=== PATIENT | female | born 2000 | race African-American/Black ===

== ENCOUNTER 2025-02-04 13:17 | Emergency (ER) | payer MEDICAID, OTHER ==
[~2025-02-04] VITALS: Ht 160 cm; Wt 100.0 kg
[2025-02-04 13:21] VITALS: BP 111/64; PULSE 94; RESP 18; TEMP 36.9; O2SAT 100
== END 2025-02-04 14:44 | disposition home or self-care (01) ==
LOC: ER 13:17
DX: T16.1XXA Foreign body in right ear, initial encounter (principal); W44.F9XA Other object of natural or organic material, entering into or through a natural orifice, initial encounter; Y93.89 Activity, other specified; Y92.89 Other specified places as the place of occurrence of the external cause; Y99.8 Other external cause status
CPT/HCPCS: 69200; 99284